=== PATIENT | male | born 1940 | race Two or more races ===

== ENCOUNTER 2017-01-28 17:03 | Inpatient (IN) | payer MEDICARE ==
[~2017-01-28] VITALS: Ht 165.1 cm; Wt 70.3 kg
[2017-01-28] MEDS ORDERED: Vancomycin 1.5gm/D5W 250ml 250 ML IVPB ONE (17:30)
[2017-01-28] MEDS ORDERED: ceFAZolin 2gm/50ml Premix 50 ML IVPB ONE (17:30)
--- NOTE | 2017-01-28 17:36 | Emergency Room Report ---
History of Present Illness General Chief Complaint: Edema Source: Patient Present Illness HPI 76 yo M hx HTN HLD pw RLE pain/swelling/redness x 2 days. pt states he got home from work, and then notices rash to RLE. +red which spread up to knee. denies calf pain, but pain to where the rashes are. denies any trauma. no fever or chills. no numbness or tingling of leg. no hx of dvt/pe in the past. no hx of DM. has been able to ambulate with slight limp Allergies: Coded Allergies: No Known Allergies (Unverified , 01/28/17) Patient History Past Medical History: none, HTN Past Surgical History: none Pertinent Family History: none Nursing Documentation-PMH Past Medical History: No History, Except For Hx Hypertension: Yes - High cholesterol Review of Systems Musculoskeletal: Reports: other - RLE pain/swelling/redness Skin: Reports: change in color, rash All Other Systems: negative except mentioned in HPI Physical Exam Vital Signs Date Time Temp Pulse Resp B/P Pulse Ox O2 Delivery O2 Flow Rate FiO2 01/28/17 17:09 99.7 90 14 166/75 96 Room Air General Appearance: normal inspection, well appearing, no apparent distress, alert, GCS 15, non-toxic Head: normocephalic, atraumatic Eyes: bilateral eye EOMI, bilateral eye PERRL, bilateral eye normal inspection ENT: normal ENT inspection, normal pharynx, normal voice, moist mucus membranes Neck: normal inspection, full range of motion, supple, no bony tend Respiratory: normal inspection, lungs clear, normal breath sounds, no respiratory distress, no retraction, no wheezing, speaking full sentences, chest symmetrical Cardiovascular #1: normal inspection, regular rate, rhythm, no edema, normal capillary refill Gastrointestinal: normal inspection, non tender, soft, non-distended, no guarding Musculoskeletal: other - RLE pitting edema from ankle to knee, TTP anterior tib /fib, no calf tenderness, blanching erythematous rash, warm to touch, tender. no crepitus. ext is warm/well perfused, distal pulses intact, full ROM Neurologic: normal inspection, alert, oriented x3, responsive, motor strength/ tone normal, sensory intact, speech normal Medical Decision Making Diagnostic Impression: Primary Impression: Cellulitis Qualified Codes: L03.115 - Cellulitis of right lower limb ER Course 76 yo M 2 days of RLE pain/swelling/redness DDX: cellulitis vs. DVT at this time limb is warm/well perfused not c/w arterial occlusion nec fasc also on differential however not high on list given no tenderness OOP or beyond area of erythema, no crepitus, but will closely monitor PLAN: IV access, obtain labs, blood culture, lactate XR RLE vascular study r/o DVT ER course: patient has remained on monitior, HD stable given vanco and ancef for cellulitis labs: +leukocytosis, no lactate elevation, +mild hypokalemia repleted Vascular study: neg for dvt XR grossly neg DISPOSITION: Patient is to be admitted for RLE cellulitis. Pt requires inpatient admission for IV abx and continued monitoring of limb. Last Vital Signs Date Time Temp Pulse Resp B/P Pulse Ox O2 Delivery O2 Flow Rate FiO2 01/28/17 17:09 99.7 90 14 166/75 96 Room Air Disposition: ADMITTED INPATIENT Condition: Serious Diony Pace M.D. Jan 28, 2017 17:36
[2017-01-28 18:05] LABS: BASOPHILS % (AUTO) 1.2 % (0.0-2.0); LYMPHOCYTES % (AUTO) 10.9 % (20.0-45.0); MEAN CORPUSCULAR HEMOGLOBIN 31.5 PG (27.0-31.0); MEAN CORPUSCULAR VOLUME 90 FL (80-99); MONOCYTES % (AUTO) 5.3 % (1.0-10.0); NEUTROPHILS % (AUTO) 82.6 % (45.0-75.0); PLATELET COUNT 342 K/UL (150-450); RED BLOOD COUNT 4.31 M/UL (4.70-6.10); RED CELL DISTRIBUTION WIDTH 11.4 % (11.6-14.8); WHITE BLOOD COUNT 17.1 K/UL (4.8-10.8)
[2017-01-28 18:16] VITALS: BP 134/51
[2017-01-28 18:28] LABS: ALANINE AMINOTRANSFERASE 14 U/L (3-41); ALBUMIN/GLOBULIN RATIO 0.9 (1.0-2.7); ANION GAP 18 (5-15); ASPARTATE AMINO TRANSFERASE 17 U/L (5-40); CARBON DIOXIDE 21 mEQ/L (20-30); CHLORIDE 91 mEQ/L (98-107); CREATININE 1.3 mg/dL (0.7-1.2); HEMOLYSIS 3; POTASSIUM 3.1 mEQ/L (3.4-4.9); SODIUM 130 mEQ/L (135-145); TOTAL PROTEIN 8.2 g/dL (6.6-8.7)
[2017-01-28 20:30] VITALS: BP 127/57
[2017-01-28] MEDS ORDERED: NKM (21:06)
[2017-01-28] MEDS ORDERED: ATENOLOL100 MG ORAL (21:49)
[2017-01-28] MEDS ORDERED: LOSARTAN POTASS50 MG ORAL (21:49)
[2017-01-28] MEDS ORDERED: AMLODIPINE BESY10 MG ORAL (21:49)
[2017-01-28] MEDS ORDERED: HYDROCHLOROTH12.5 M2 ORAL (21:49)
[2017-01-28] MEDS ORDERED: ATORVASTATIN CA20 MG ORAL (21:49)
[2017-01-28 21:53] VITALS: BP 124/59
[2017-01-28] MEDS: Heparin 5000 units/ml inj SUBQ SCH (23:21)
[2017-01-28 23:25] VITALS: BP 121/61
[2017-01-29 05:00] VITALS: BP 112/46
[2017-01-29] MEDS ORDERED: Vancomycin 1gm inj IVPB ONE (05:03)
[2017-01-29] MEDS ORDERED: Vancomycin 1gm in D5W 275ml IVPB SCH ×2 (06:00→09:00)
[2017-01-29 08:08] VITALS: BP 107/52
[2017-01-29] MEDS: Heparin 5000 units/ml inj SUBQ SCH ×2 (08:18→21:05)
[2017-01-29] MEDS ORDERED: ASPIRIN81 MG ORAL (10:09)
--- NOTE | 2017-01-29 11:04 | Infectious Diseases Prog Note ---
Assessment/Plan Assessment/Plan Full consult dictated: A) 1) right leg cellulitis, possible sepsis, leukocytosis, fevers 2) pmh noted P) 1) vancomycin 2) check labs 3) check bc, ua, labs 4) thanks Subjective Allergies: Coded Allergies: No Known Allergies (Unverified , 01/28/17) Objective Vital Signs Last 24 Hour Vital Signs Date Time Temp Pulse Resp B/P Pulse Ox O2 Delivery O2 Flow Rate FiO2 01/29/17 08:08 97.6 85 20 107/52 96 Room Air 01/29/17 05:00 98.2 77 20 112/46 97 Room Air 01/28/17 23:25 98.9 78 20 121/61 98 Room Air 01/28/17 21:54 100.9 71 18 124/59 100 Room Air 01/28/17 21:53 71 18 124/59 100 Room Air 01/28/17 20:30 100.9 72 20 127/57 100 Room Air 01/28/17 18:17 90 14 Room Air 01/28/17 18:16 99.8 75 21 134/51 96 Room Air 01/28/17 17:09 99.7 90 14 166/75 96 Room Air Height (Feet): 5 Height (Inches): 5.00 Weight (Pounds): 155 Laboratory Tests Test 01/28/17 17:39 White Blood Count 17.1 K/UL (4.8-10.8) H Red Blood Count 4.31 M/UL (4.70-6.10) L Hemoglobin 13.6 G/DL (14.2-18.0) L Hematocrit 38.8 % (42.0-52.0) L Mean Corpuscular Volume 90 FL (80-99) Mean Corpuscular Hemoglobin 31.5 PG (27.0-31.0) H Mean Corpuscular Hemoglobin Concent 35.0 G/DL (32.0-36.0) Red Cell Distribution Width 11.4 % (11.6-14.8) L Platelet Count 342 K/UL (150-450) Mean Platelet Volume 6.0 FL (6.5-10.1) L Neutrophils (%) (Auto) 82.6 % (45.0-75.0) H Lymphocytes (%) (Auto) 10.9 % (20.0-45.0) L Monocytes (%) (Auto) 5.3 % (1.0-10.0) Eosinophils (%) (Auto) 0.0 % (0.0-3.0) Basophils (%) (Auto) 1.2 % (0.0-2.0) Sodium Level 130 mEQ/L (135-145) L Potassium Level 3.1 mEQ/L (3.4-4.9) L Chloride Level 91 mEQ/L (98-107) L Carbon Dioxide Level 21 mEQ/L (20-30) Anion Gap 18 (5-15) H Blood Urea Nitrogen 29 mg/dL (7-23) H Creatinine 1.3 mg/dL (0.7-1.2) H Estimat Glomerular Filtration Rate mL/min (>60) Glucose Level 114 mg/dL (74-106) H Lactic Acid Level 1.20 mmol/L (0.66-2.22) Calcium Level 9.0 mg/dL (8.6-10.2) Total Bilirubin 0.9 mg/dL (0.0-1.2) Aspartate Amino Transf (AST/SGOT) 17 U/L (5-40) Alanine Aminotransferase (ALT/SGPT) 14 U/L (3-41) Alkaline Phosphatase 94 U/L (40-129) Total Protein 8.2 g/dL (6.6-8.7) Albumin 4.0 g/dL (3.5-5.2) Globulin 4.2 g/dL Albumin/Globulin Ratio 0.9 (1.0-2.7) L Current Medications Medications (Trade) Dose Ordered Sig/Kashif Route PRN Reason Start Time Stop Time Status Last Admin Dose Admin Heparin Sodium (Porcine) 5000 units 5,000 units Q12HR SUBQ 01/28/17 22:00 02/27/17 21:59 01/29/17 08:18 Vancomycin HCl (Vanco rx to dose) 1 ea DAILY PRN MISC Per rx protocol 01/28/17 20:30 02/27/17 20:29 Vancomycin HCl/ Dextrose (Vancomycin/D5W) 275 ml @ 183.708 mls/hr Q24H IVPB 01/29/17 06:00 02/03/17 05:59 01/29/17 05:53 EVE MARTINEZ Jan 29, 2017 11:04
[2017-01-29 11:47] VITALS: BP 125/64
--- NOTE | 2017-01-29 12:40 | Diagnostic Imaging Report ---
Indication: Pain Comparison: None Findings: Two views of the right tibia and fibula were obtained. No acute fracture, malalignment, or periosteal reaction are identified. Soft tissues are unremarkable. Impression: Negative examination of the tibia and fibula
[2017-01-29 15:54] VITALS: BP 124/63
[2017-01-29] MEDS ORDERED: Miralax 17gm pkt ORAL PRN (16:00)
--- NOTE | 2017-01-29 16:45 | Consultation ---
DATE OF CONSULTATION: 01/29/2017 INFECTIOUS DISEASES CONSULTATION CONSULTING PHYSICIAN: Brandon Goss M.D. ATTENDING PHYSICIANS: Ashly Boone M.D. I was asked by Dr. Meadows to see this patient. REASON FOR CONSULTATION: Right leg cellulitis, possible sepsis, leukocytosis, and fevers. CHIEF COMPLAINT: Right leg cellulitis. HISTORY OF PRESENT ILLNESS: This is a very pleasant 76-year-old male, who comes in to [facility] with right leg swelling and redness for the last 24 hours. The patient has cellulitis and elevated white count, fevers, and possible sepsis. Infectious Diseases consultation was requested. The patient currently is on vancomycin. MAR was noted. Orders were noted. Notes and records were reviewed. Case was discussed and communicated with Dr. Meadows. PAST MEDICAL HISTORY: Looks like he has a history of hypertension and hyperlipidemia. MEDICATIONS: Outside medications were noted and reconciled. He is on amlodipine, aspirin, atenolol, atorvastatin, hydrochlorothiazide, and losartan. Now he is on vancomycin and IV fluids. ALLERGIES: No known drug allergies. SOCIAL HISTORY: Negative for smoking, alcohol, and drug abuse. FAMILY HISTORY: Noncontributory. Negative for exposure to tuberculosis or cancer. REVIEW OF SYSTEMS: General: He has fevers. No chills. He has no night sweats. No weight loss. Head And Neck: No head pain, neck pain, thrush, or dysphagia. Cardiac: No chest pain. GI: No nausea, vomiting, or diarrhea. Genitourinary: No dysuria or frequency. Pulmonary: No congestion. Skin: No rash. Extremities: Has right leg pain, swelling, and redness. Neurologic: No seizures. He has no hemoptysis or secretions. PHYSICAL EXAMINATION: GENERAL: Alert and responsive, in no acute distress. He is oriented x3. VITAL SIGNS: The patient has been having fevers as high as 100.9 degrees, pulse rate 85, respiratory rate 21, blood pressure 107/52, and saturation 96%. HEAD AND NECK: Oral exam, no thrush. Eye exam, no icterus. Normocephalic. No facial droop. Neck is supple. No JVD. HEART: Regular. No gallop or murmur. No friction rub. LUNGS: Clear bilaterally. No rhonchi or rales. ABDOMEN: Soft. Positive bowel sounds. Nontender. SKIN: No rash or dermatitis. MUSCULOSKELETAL: No evidence of septic arthritis. EXTREMITIES: Leg exam, he has significant right leg swelling, redness, and warmth consistent with cellulitis. PERIPHERAL VASCULAR: No cyanosis or gangrene. RECTAL: Deferred. GENITOURINARY: No Fan. LINES: Line sites without phlebitis. NEUROLOGIC: Intact and nonfocal. Alert and oriented x3. LABORATORY AND DIAGNOSTIC DATA: White count is 17.1 and hemoglobin 13.6. Creatinine is 1.3. LFTs were noted. IMAGING STUDIES: an ultrasound of the leg. ASSESSMENT AND PLAN: 1. The patient has severe right leg cellulitis with leg, possible sepsis with leukocytosis and fevers and such criteria. Continue vancomycin at this time to cover Staphylococcus aureus including MRSA and Streptococcus pyogenes. Continue vancomycin. Check followup labs. Watch creatinine. Watch white cell count. 2. Hypertension. 3. Hyperlipidemia. 4. No history of diabetes. 5. No known allergies. 6. Social history is negative. 7. MAR was noted. 8. Case was discussed with RN. 9. Notes and records reviewed. 10. Continue treatment per Dr. Meadows at this time. Brandon Goss M.D. DR: RAINER JOB#: [id number] CC:
[2017-01-29] MEDS ORDERED: Tubing IV Secondary IV ONE (16:57)
[2017-01-29] MEDS ORDERED: D5W 275ml ONE (16:57)
[2017-01-29] MEDS ORDERED: NS 275ml ONE (16:57)
[2017-01-29] MEDS: Aspirin Baby 81mg ORAL SCH (17:07)
[2017-01-29 18:06] LABS: BASOPHILS % (AUTO) 0.6 % (0.0-2.0); EOSINOPHILS % (AUTO) 0.1 % (0.0-3.0); LYMPHOCYTES % (AUTO) 9.1 % (20.0-45.0); MEAN CORPUSCULAR HEMOGLOBIN 33.4 PG (27.0-31.0); MEAN CORPUSCULAR HGB CONC 37.1 G/DL (32.0-36.0); MEAN CORPUSCULAR VOLUME 90 FL (80-99); MEAN PLATELET VOLUME 5.9 FL (6.5-10.1); MONOCYTES % (AUTO) 6.3 % (1.0-10.0); NEUTROPHILS % (AUTO) 83.9 % (45.0-75.0); PLATELET COUNT 274 K/UL (150-450); RED BLOOD COUNT 3.43 M/UL (4.70-6.10); RED CELL DISTRIBUTION WIDTH 11.4 % (11.6-14.8); WHITE BLOOD COUNT 14.5 K/UL (4.8-10.8)
[2017-01-29 18:25] LABS: PHOSPHORUS 1.8 mg/dL (2.5-4.8)
[2017-01-29 18:27] LABS: ANION GAP 15 (5-15); CALCIUM 8.1 mg/dL (8.6-10.2); CARBON DIOXIDE 20 mEQ/L (20-30); CHLORIDE 98 mEQ/L (98-107); HEMOLYSIS 32; POTASSIUM 3.8 mEQ/L (3.4-4.9); SODIUM 133 mEQ/L (135-145)
[2017-01-29 20:13] LABS: APPEARANCE,URINE CLEAR; KETONES,URINE 1+ (NEGATIVE); LEUKOCYTE ESTERASE ,URINE NEGATIVE (NEGATIVE); NITRITE,URINE NEGATIVE (NEGATIVE); PH,URINE 6 (4.5-8.0); PROTEIN,URINE 2+ (NEGATIVE); UROBILINOGEN,URINE NORMAL MG/DL (0.0-1.0)
[2017-01-29 20:23] LABS: BACTERIA,URINE FEW /HPF; WBC,URINE 0-2 /HPF (0 - 0)
[2017-01-29 21:00] VITALS: BP 110/52
[2017-01-29] MEDS: Atorvastatin 20mg tab ORAL SCH (21:02)
[2017-01-29] MEDS: Vancomycin 1gm in D5W 275ml IVPB SCH (21:03)
[2017-01-30] VITALS: BP 132/61
[2017-01-30 04:00] VITALS: BP 138/64
[2017-01-30 07:29] LABS: BASOPHILS % (AUTO) 0.6 % (0.0-2.0); EOSINOPHILS % (AUTO) 0.5 % (0.0-3.0); LYMPHOCYTES % (AUTO) 11.3 % (20.0-45.0); MEAN CORPUSCULAR HEMOGLOBIN 31.3 PG (27.0-31.0); MEAN CORPUSCULAR HGB CONC 33.9 G/DL (32.0-36.0); MEAN CORPUSCULAR VOLUME 92 FL (80-99); MEAN PLATELET VOLUME 5.7 FL (6.5-10.1); MONOCYTES % (AUTO) 6.5 % (1.0-10.0); NEUTROPHILS % (AUTO) 81.2 % (45.0-75.0); PLATELET COUNT 322 K/UL (150-450); RED BLOOD COUNT 3.68 M/UL (4.70-6.10); RED CELL DISTRIBUTION WIDTH 11.7 % (11.6-14.8); WHITE BLOOD COUNT 14.4 K/UL (4.8-10.8)
[2017-01-30 07:41] LABS: ANION GAP 11 (5-15); CALCIUM 8.5 mg/dL (8.6-10.2); CARBON DIOXIDE 24 mEQ/L (20-30); CHLORIDE 101 mEQ/L (98-107); HEMOLYSIS 6; POTASSIUM 4.1 mEQ/L (3.4-4.9); SODIUM 136 mEQ/L (135-145)
[2017-01-30] MEDS: Aspirin Baby 81mg ORAL SCH (08:35)
[2017-01-30] MEDS: Heparin 5000 units/ml inj SUBQ SCH ×2 (08:36→21:05)
[2017-01-30 09:10] VITALS: BP 139/67
[2017-01-30 12:00] VITALS: BP 133/72
[2017-01-30 16:00] VITALS: BP 112/62
--- NOTE | 2017-01-30 17:48 | History and Physical ---
History of Present Illness General Date patient seen: Jan 29, 2017 Time patient seen: 12:00 Reason for Hospitalization: RLE cellulitis Present Illness HPI 76yo male with pmh of HTN, HLD presents with RLE pain/swelling/redness x 2 days.Ppt states he got home from work, and then notices rash to RLE. +red which spread up to knee. denies calf pain, but pain to where the rashes are. Denies any trauma. no fever or chills. no numbness or tingling of leg. No h/o DVT/PE in past. Denies h/o DM. Pt has been able to ambulate with slight limp. Denies recent travel or sick contacts. Denies f/c, n/v, d/c, chest pain, SOB, abd pain , dysuria. In ED, pt w/ WBC to 17K. Pt given IVFs, vanco and ancef. X-ray neg. U/S LE duplex neg for DVT. Allergies: Coded Allergies: No Known Allergies (Unverified , 01/28/17) Medication History Scheduled Amlodipine Besylate* (Amlodipine Besylate*), 10 MG ORAL DAILY, (Reported) Aspirin* (Aspirin*), 81 MG ORAL DAILY, (Reported) Atenolol* (Tenormin*), 100 MG ORAL DAILY, (Reported) Atorvastatin Calcium* (Atorvastatin Calcium*), 200 MG ORAL BEDTIME, (Reported) Hydrochlorothiazide* (Hydrochlorothiazide*), 25 MG ORAL DAILY, (Reported) Losartan Potassium* (Losartan Potassium*), 100 MG ORAL DAILY, (Reported) Discontinued Medications No Known Medications* (NKM - No Known Medications*), 0 ., (Reported) Discontinued Reason: Therapy completed Patient History Healthcare decision maker Resuscitation status Full Code Advanced Directive on File Past Medical/Surgical History Past Medical/Surgical History: (1) HTN (hypertension) (2) HLD (hyperlipidemia) Family History Family History: Patient reports no known family medical history. Social History Social History: (1) lives at home with Review of Systems Constitutional: Reports: no symptoms Eye: Reports: no symptoms ENT: Reports: no symptoms Respiratory: Reports: no symptoms Cardiovascular: Reports: no symptoms Gastrointestinal: Reports: no symptoms Genitourinary: Reports: no symptoms Musculoskeletal: Reports: no symptoms Skin: Reports: no symptoms Psychiatric: Reports: no symptoms Neurological: Reports: no symptoms Endocrine: Reports: no symptoms Hematologic/Lymphatic: Reports: no symptoms Physical Exam Physical Exam Narrative General: alert, cooperative, no distress, appears stated age Head: normocephalic, without obvious abnormality, atraumatic Eyes: conjunctivae/corneas clear. PERRL, EOM's intact Throat: lips, mucosa, and tongue normal. MMM Neck: supple, symmetrical, trachea midline, and no JVD Lungs: clear to auscultation bilaterally Heart: regular rate and rhythm, S1, S2 normal, no murmur, click, rub or gallop Abdomen: soft, non-tender, non-distended, bowel sounds normal; no masses or organomegaly Extremities: extremities normal, atraumatic, no cyanosis, +RLE pitting edema from ankle to knee, TTP anterior tib/fib, no calf tenderness, blanching erythematous rash, warm to touch, tender. no crepitus. ext is warm/well perfused , distal pulses intact, full ROM Pulses: 2+ and symmetric Skin: skin color, texture, turgor normal; no rashes or lesions Neurologic: grossly normal, no focal deficits Last 24 Hour Vital Signs Date Time Temp Pulse Resp B/P Pulse Ox O2 Delivery O2 Flow Rate FiO2 01/30/17 16:00 98.2 76 18 112/62 97 Room Air 01/30/17 12:00 97.7 82 18 133/72 98 Room Air 01/30/17 09:10 97.5 87 18 139/67 Room Air 01/30/17 05:09 97.7 01/30/17 04:00 100.9 84 20 138/64 97 Room Air 01/30/17 00:00 99.1 80 20 132/61 96 Room Air 01/29/17 21:00 97.7 76 20 110/52 95 Room Air Intake and Output 01/29/17 01/30/17 18:59 06:59 Intake Total 1200 ml 525.000 ml Output Total 300 ml 1 ml Balance 900 ml 524.000 ml Intake Oral 1200 ml 250 ml IV Total 275.000 ml Output Urine Total 300 ml 1 ml # Voids 3 Laboratory Tests Test 01/29/17 19:45 01/30/17 06:15 Urine Color Yellow Urine Appearance Clear Urine pH 6 (4.5-8.0) Urine Specific [place] 1.010 (1.005-1.035) Urine Protein 2+ (NEGATIVE) H Urine Glucose (UA) Negative (NEGATIVE) Urine Ketones 1+ (NEGATIVE) H Urine Occult Blood 1+ (NEGATIVE) H Urine Nitrite Negative (NEGATIVE) Urine Bilirubin Negative (NEGATIVE) Urine Urobilinogen Normal MG/DL (0.0-1.0) Urine Leukocyte Esterase Negative (NEGATIVE) Urine RBC 2-4 /HPF (0 - 0) H Urine WBC 0-2 /HPF (0 - 0) Urine Squamous Epithelial Cells None /LPF (NONE/OCC) Urine Bacteria Few /HPF (NONE) White Blood Count 14.4 K/UL (4.8-10.8) H Red Blood Count 3.68 M/UL (4.70-6.10) L Hemoglobin 11.5 G/DL (14.2-18.0) L Hematocrit 34.0 % (42.0-52.0) L Mean Corpuscular Volume 92 FL (80-99) Mean Corpuscular Hemoglobin 31.3 PG (27.0-31.0) H Mean Corpuscular Hemoglobin Concent 33.9 G/DL (32.0-36.0) Red Cell Distribution Width 11.7 % (11.6-14.8) Platelet Count 322 K/UL (150-450) Mean Platelet Volume 5.7 FL (6.5-10.1) L Neutrophils (%) (Auto) 81.2 % (45.0-75.0) H Lymphocytes (%) (Auto) 11.3 % (20.0-45.0) L Monocytes (%) (Auto) 6.5 % (1.0-10.0) Eosinophils (%) (Auto) 0.5 % (0.0-3.0) Basophils (%) (Auto) 0.6 % (0.0-2.0) Sodium Level 136 mEQ/L (135-145) Potassium Level 4.1 mEQ/L (3.4-4.9) Chloride Level 101 mEQ/L (98-107) Carbon Dioxide Level 24 mEQ/L (20-30) Anion Gap 11 (5-15) Blood Urea Nitrogen 13 mg/dL (7-23) Creatinine 1.0 mg/dL (0.7-1.2) Estimat Glomerular Filtration Rate mL/min (>60) Glucose Level 110 mg/dL (74-106) H Calcium Level 8.5 mg/dL (8.6-10.2) L Height (Feet): 5 Height (Inches): 5.00 Weight (Pounds): 155 Medications Current Medications Medications (Trade) Dose Ordered Sig/Kashif Route PRN Reason Start Time Stop Time Status Last Admin Dose Admin Acetaminophen (Tylenol) 650 mg Q6H PRN ORAL Mild Pain/Temp > 100.5 01/29/17 15:15 02/28/17 15:14 01/30/17 17:04 Amlodipine Besylate (Norvasc) 10 mg DAILYPRN PRN ORAL SBP>155 01/29/17 16:30 02/28/17 16:29 Aspirin (ASA) 81 mg DAILY ORAL 01/29/17 16:30 02/28/17 16:29 01/30/17 08:35 Atorvastatin Calcium (Lipitor) 20 mg BEDTIME ORAL 01/29/17 21:00 02/28/17 20:59 01/29/17 21:02 Heparin Sodium (Porcine) 5000 units 5,000 units Q12HR SUBQ 01/28/17 22:00 02/27/17 21:59 01/30/17 08:36 Polyethylene Glycol (Miralax) 17 gm DAILY PRN ORAL Constipation 01/29/17 16:00 02/28/17 15:59 Vancomycin HCl (Vanco rx to dose) 1 ea DAILY PRN MISC Per rx protocol 01/28/17 20:30 02/27/17 20:29 Vancomycin HCl/ Dextrose (Vancomycin/D5W) 275 ml @ 183.708 mls/hr DAILY@2100 IVPB 01/29/17 21:00 02/03/17 20:59 01/29/17 21:03 Assessment/Plan Problem List: (1) Sepsis ICD Codes: A41.9 - Sepsis, unspecified organism SNOMED: 56327120 (2) Cellulitis of right lower extremity ICD Codes: L03.115 - Cellulitis of right lower limb SNOMED: 972938744 (3) HTN (hypertension) ICD Codes: I10 - Essential (primary) hypertension SNOMED: 04664505 (4) HLD (hyperlipidemia) ICD Codes: E78.5 - Hyperlipidemia, unspecified SNOMED: 41439138 (5) Hyponatremia ICD Codes: E87.1 - Hypo-osmolality and hyponatremia SNOMED: 85783767 (6) GABBI (acute kidney injury) ICD Codes: N17.9 - Acute kidney failure, unspecified SNOMED: 75932016 (7) Hypokalemia ICD Codes: E87.6 - Hypokalemia SNOMED: 79573707 (8) Hypophosphatemia ICD Codes: E83.39 - Other disorders of phosphorus metabolism SNOMED: 2573228 Status: stable Assessment/Plan Admit inpt ID consulted Empiric vanco F/u cultures X-ray tib/fib neg RLE U/S duplex neg for DVT Trend CBC, BMP Cont home ASA, staitn Hold home losartan, HCTZ given GABBI, hyponatremia Hold home BP meds for now given concern for sepsis and BPs ok Pain control, supportive care, bowel regimen DVT Prophylaxis: SCD, HSQ Code Status: Full Hospital Classification Declaration: Based on this initial evaluation, and depending on the patient's clinical course, I anticipate that this patient will require hospitalization for 2-3 days for sepsis 2/2 RLE cellulitis and close respiratory/hemodynamic monitoring. Disposition: Once the patient is stable to leave the hospital, I anticipate the patient will likely be discharged to the following environment: home with HH vs SNF I spent 70 minutes on this patient's case, and 36 minutes were dedicated to counseling and/or care coordination. Discussed with patient/family, nursing staff, SW/CM, ID regarding clinical status, treatment course, and disposition planning. Time of note may not reflect time of encounter. Abdiel Self M.D. Jan 30, 2017 17:48
--- NOTE | 2017-01-30 17:49 | Infectious Diseases Prog Note ---
Assessment/Plan Assessment/Plan ASSESSMENT AND PLAN: 1. The patient has severe right leg cellulitis with redness and swelling of right leg, possible sepsis with leukocytosis and fevers and sirs criteria. - cellulitis still significant - continue vancomycin, add cefepime for gram negative coverage - leg elevation - check labs - leukocytosis better 2. Hypertension. 3. Hyperlipidemia. 4. No history of diabetes. 5. No known allergies. 6. Social history is negative. 7. MAR was noted. 8. Case was discussed with RN. 9. Notes and records reviewed. 10. Continue treatment per Dr. Meadows Subjective Constitutional: Reports: fatigue, fever, Denies: chills HEENT: Denies: congestion Respiratory: Denies: shortness of breath Breasts: Denies: discharge Cardiovascular: Denies: chest pain Gastrointestinal/Abdominal: Denies: diarrhea, nausea, vomiting Genitourinary: Denies: dysuria Neurologic: Denies: headache Psychiatric: Denies: depression Skin: Denies: rash Hematologic: Denies: bleeding Musculoskeletal: Reports: other - + right leg pain, Denies: pain Allergies: Coded Allergies: No Known Allergies (Unverified , 01/28/17) Objective Vital Signs Last 24 Hour Vital Signs Date Time Temp Pulse Resp B/P Pulse Ox O2 Delivery O2 Flow Rate FiO2 01/30/17 16:00 98.2 76 18 112/62 97 Room Air 01/30/17 12:00 97.7 82 18 133/72 98 Room Air 01/30/17 09:10 97.5 87 18 139/67 Room Air 01/30/17 05:09 97.7 01/30/17 04:00 100.9 84 20 138/64 97 Room Air 01/30/17 00:00 99.1 80 20 132/61 96 Room Air 01/29/17 21:00 97.7 76 20 110/52 95 Room Air Height (Feet): 5 Height (Inches): 5.00 Weight (Pounds): 155 General Appearance: no acute distress HEENT: normocephalic, atraumatic, anicteric, mucous membranes moist, PERRL, EOMI, pharynx normal, supple, no JVD Respiratory/Chest: lungs clear, normal breath sounds, no respiratory distress Cardiovascular: normal rate, regular rhythm, no gallop/murmur, no JVD Abdomen: normal bowel sounds, soft, non tender, no organomegaly, non distended Genitourinary: other - no romano Extremities: no cyanosis, other - right leg still with significant redness, pain and swelling Skin: no rash Neurologic/Psychiatric: 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 normal, abnormal gait, oriented x 3 , responsive Lymphatic: no neck adenopathy Musculoskeletal: no effusion, other - no septic arthritis of right leg Objective x-ray right leg - negative Microbiology Date/Time Source Procedure Growth Status 01/28/17 17:29 Blood Blood Culture - Preliminary NO GROWTH AFTER 24 HOURS Resulted 01/28/17 17:19 Blood Blood Culture - Preliminary NO GROWTH AFTER 24 HOURS Resulted Laboratory Tests Test 01/29/17 19:45 01/30/17 06:15 Urine Color Yellow Urine Appearance Clear Urine pH 6 (4.5-8.0) Urine Specific [place] 1.010 (1.005-1.035) Urine Protein 2+ (NEGATIVE) H Urine Glucose (UA) Negative (NEGATIVE) Urine Ketones 1+ (NEGATIVE) H Urine Occult Blood 1+ (NEGATIVE) H Urine Nitrite Negative (NEGATIVE) Urine Bilirubin Negative (NEGATIVE) Urine Urobilinogen Normal MG/DL (0.0-1.0) Urine Leukocyte Esterase Negative (NEGATIVE) Urine RBC 2-4 /HPF (0 - 0) H Urine WBC 0-2 /HPF (0 - 0) Urine Squamous Epithelial Cells None /LPF (NONE/OCC) Urine Bacteria Few /HPF (NONE) White Blood Count 14.4 K/UL (4.8-10.8) H Red Blood Count 3.68 M/UL (4.70-6.10) L Hemoglobin 11.5 G/DL (14.2-18.0) L Hematocrit 34.0 % (42.0-52.0) L Mean Corpuscular Volume 92 FL (80-99) Mean Corpuscular Hemoglobin 31.3 PG (27.0-31.0) H Mean Corpuscular Hemoglobin Concent 33.9 G/DL (32.0-36.0) Red Cell Distribution Width 11.7 % (11.6-14.8) Platelet Count 322 K/UL (150-450) Mean Platelet Volume 5.7 FL (6.5-10.1) L Neutrophils (%) (Auto) 81.2 % (45.0-75.0) H Lymphocytes (%) (Auto) 11.3 % (20.0-45.0) L Monocytes (%) (Auto) 6.5 % (1.0-10.0) Eosinophils (%) (Auto) 0.5 % (0.0-3.0) Basophils (%) (Auto) 0.6 % (0.0-2.0) Sodium Level 136 mEQ/L (135-145) Potassium Level 4.1 mEQ/L (3.4-4.9) Chloride Level 101 mEQ/L (98-107) Carbon Dioxide Level 24 mEQ/L (20-30) Anion Gap 11 (5-15) Blood Urea Nitrogen 13 mg/dL (7-23) Creatinine 1.0 mg/dL (0.7-1.2) Estimat Glomerular Filtration Rate mL/min (>60) Glucose Level 110 mg/dL (74-106) H Calcium Level 8.5 mg/dL (8.6-10.2) L Current Medications Medications (Trade) Dose Ordered Sig/Kashif Route PRN Reason Start Time Stop Time Status Last Admin Dose Admin Acetaminophen (Tylenol) 650 mg Q6H PRN ORAL Mild Pain/Temp > 100.5 01/29/17 15:15 02/28/17 15:14 01/30/17 17:04 Amlodipine Besylate (Norvasc) 10 mg DAILYPRN PRN ORAL SBP>155 01/29/17 16:30 02/28/17 16:29 Aspirin (ASA) 81 mg DAILY ORAL 01/29/17 16:30 02/28/17 16:29 01/30/17 08:35 Atorvastatin Calcium (Lipitor) 20 mg BEDTIME ORAL 01/29/17 21:00 02/28/17 20:59 01/29/17 21:02 Heparin Sodium (Porcine) 5000 units 5,000 units Q12HR SUBQ 01/28/17 22:00 02/27/17 21:59 01/30/17 08:36 Polyethylene Glycol (Miralax) 17 gm DAILY PRN ORAL Constipation 01/29/17 16:00 02/28/17 15:59 Vancomycin HCl (Vanco rx to dose) 1 ea DAILY PRN MISC Per rx protocol 01/28/17 20:30 02/27/17 20:29 Vancomycin HCl/ Dextrose (Vancomycin/D5W) 275 ml @ 183.708 mls/hr DAILY@2100 IVPB 01/29/17 21:00 02/03/17 20:59 01/29/17 21:03 EVE MARTINEZ Jan 30, 2017 17:49
--- NOTE | 2017-01-30 17:51 | General Progress Note ---
Assessment/Plan Problem List: (1) Sepsis ICD Codes: A41.9 - Sepsis, unspecified organism SNOMED: 88771691 (2) Cellulitis of right lower extremity ICD Codes: L03.115 - Cellulitis of right lower limb SNOMED: 367944047 (3) HTN (hypertension) ICD Codes: I10 - Essential (primary) hypertension SNOMED: 59727044 (4) HLD (hyperlipidemia) ICD Codes: E78.5 - Hyperlipidemia, unspecified SNOMED: 13683632 (5) Hyponatremia ICD Codes: E87.1 - Hypo-osmolality and hyponatremia SNOMED: 85666661 (6) GABBI (acute kidney injury) ICD Codes: N17.9 - Acute kidney failure, unspecified SNOMED: 34939611 (7) Hypokalemia ICD Codes: E87.6 - Hypokalemia SNOMED: 15322923 (8) Hypophosphatemia ICD Codes: E83.39 - Other disorders of phosphorus metabolism SNOMED: 3195420 Status: stable Status Narrative ID consulted Empiric vanco (01/28-) Add cefepime (01/30-) F/u cultures X-ray tib/fib neg RLE U/S duplex neg for DVT Trend CBC, BMP Cont home ASA, staitn Hold home losartan, HCTZ given GABBI, hyponatremia Hold home BP meds for now given concern for sepsis and BPs ok Pain control, supportive care, bowel regimen PT eval DVT Prophylaxis: SCD, HSQ Code Status: Full Hospital Classification Declaration: Based on this initial evaluation, and depending on the patient's clinical course, I anticipate that this patient will require hospitalization for 2-3 days for sepsis 2/2 RLE cellulitis and close respiratory/hemodynamic monitoring. Disposition: Once the patient is stable to leave the hospital, I anticipate the patient will likely be discharged to the following environment: home with HH vs SNF Discussed with patient/family, nursing staff, SW/CM, ID regarding clinical status, treatment course, and disposition planning. Time of note may not reflect time of encounter. Subjective Date patient seen: Jan 30, 2017 Time patient seen: 13:50 ROS Limited/Unobtainable: No Constitutional: Reports: no symptoms HEENT: Reports: no symptoms Cardiovascular: Reports: no symptoms Respiratory: Reports: no symptoms Gastrointestinal/Abdominal: Reports: no symptoms Genitourinary: Reports: no symptoms Neurologic/Psychiatric: Reports: no symptoms Endocrine: Reports: no symptoms Hematologic/Lymphatic: Reports: no symptoms Allergies: Coded Allergies: No Known Allergies (Unverified , 01/28/17) All Systems: reviewed and negative except above Subjective Tmax 100.9 Pt doing well but cont w/ RLE swelling/redness/pain/warmth. Able to ambulate a few steps but does have pain Intermittent fevers/chills Denies chest pain, SOB, n/v, d/c, abd pain Objective Last 24 Hour Vital Signs Date Time Temp Pulse Resp B/P Pulse Ox O2 Delivery O2 Flow Rate FiO2 01/30/17 16:00 98.2 76 18 112/62 97 Room Air 01/30/17 12:00 97.7 82 18 133/72 98 Room Air 01/30/17 09:10 97.5 87 18 139/67 Room Air 01/30/17 05:09 97.7 01/30/17 04:00 100.9 84 20 138/64 97 Room Air 01/30/17 00:00 99.1 80 20 132/61 96 Room Air 01/29/17 21:00 97.7 76 20 110/52 95 Room Air Intake and Output 01/29/17 01/30/17 19:00 07:00 Intake Total 1200 ml 525.000 ml Output Total 300 ml 1 ml Balance 900 ml 524.000 ml Intake Oral 1200 ml 250 ml IV Total 275.000 ml Output Urine Total 300 ml 1 ml # Voids 3 Laboratory Tests 01/29/17 19:45: Urine Color Yellow, Urine Appearance Clear, Urine pH 6, Urine Specific [place] 1.010, Urine Protein 2+H, Urine Glucose (UA) Negative, Urine Ketones 1+H, Urine Occult Blood 1+H, Urine Nitrite Negative, Urine Bilirubin Negative, Urine Urobilinogen Normal, Urine Leukocyte Esterase Negative, Urine RBC 2-4H, Urine WBC 0-2, Urine Squamous Epithelial Cells None, Urine Bacteria Few 01/30/17 06:15: White Blood Count 14.4H, Red Blood Count 3.68L, Hemoglobin 11.5L, Hematocrit 34.0L, Mean Corpuscular Volume 92, Mean Corpuscular Hemoglobin 31.3H, Mean Corpuscular Hemoglobin Concent 33.9, Red Cell Distribution Width 11.7, Platelet Count 322, Mean Platelet Volume 5.7L, Neutrophils (%) (Auto) 81.2H, Lymphocytes (%) (Auto) 11.3L, Monocytes (%) (Auto) 6.5, Eosinophils (%) (Auto) 0.5, Basophils (%) (Auto) 0.6, Sodium Level 136, Potassium Level 4.1, Chloride Level 101, Carbon Dioxide Level 24, Anion Gap 11, Blood Urea Nitrogen 13, Creatinine 1.0, Estimat Glomerular Filtration Rate , Glucose Level 110H, Calcium Level 8.5L Height (Feet): 5 Height (Inches): 5.00 Weight (Pounds): 155 Objective General: alert, cooperative, no distress, appears stated age Head: normocephalic, without obvious abnormality, atraumatic Eyes: conjunctivae/corneas clear. PERRL, EOM's intact Throat: lips, mucosa, and tongue normal. MMM Neck: supple, symmetrical, trachea midline, and no JVD Lungs: clear to auscultation bilaterally Heart: regular rate and rhythm, S1, S2 normal, no murmur, click, rub or gallop Abdomen: soft, non-tender, non-distended, bowel sounds normal; no masses or organomegaly Extremities: extremities normal, atraumatic, no cyanosis, +RLE pitting edema from ankle to knee, TTP anterior tib/fib, no calf tenderness, blanching erythematous rash, warm to touch, tender. no crepitus. ext is warm/well perfused , distal pulses intact, full ROM Pulses: 2+ and symmetric Skin: skin color, texture, turgor normal; no rashes or lesions Neurologic: grossly normal, no focal deficits Abdiel Self M.D. Jan 30, 2017 17:51
[2017-01-30 20:00] VITALS: BP 130/59
[2017-01-30] MEDS ORDERED: Cefepime HCl 1 GM in D5W 55 ML IVPB SCH (21:00)
[2017-01-30] MEDS: Atorvastatin 20mg tab ORAL SCH (21:03)
[2017-01-30] MEDS: Cefepime 2gm/D5W 110ml IV SCH ×2 (21:03)
[2017-01-30] MEDS: Vancomycin 1gm in D5W 275ml IVPB SCH (23:09)
[2017-01-31] VITALS: BP 123/66
[2017-01-31 04:00] VITALS: BP 134/70
[2017-01-31 07:17] LABS: EOSINOPHILS % (AUTO) 2.4 % (0.0-3.0); LYMPHOCYTES % (AUTO) 12.5 % (20.0-45.0); MEAN CORPUSCULAR HEMOGLOBIN 31.4 PG (27.0-31.0); MEAN CORPUSCULAR VOLUME 92 FL (80-99); MEAN PLATELET VOLUME 5.2 FL (6.5-10.1); MONOCYTES % (AUTO) 5.6 % (1.0-10.0); NEUTROPHILS % (AUTO) 78.4 % (45.0-75.0); PLATELET COUNT 362 K/UL (150-450); RED BLOOD COUNT 3.63 M/UL (4.70-6.10); RED CELL DISTRIBUTION WIDTH 11.9 % (11.6-14.8); WHITE BLOOD COUNT 11.3 K/UL (4.8-10.8)
[2017-01-31 07:32] LABS: ANION GAP 12 (5-15); CALCIUM 8.3 mg/dL (8.6-10.2); CARBON DIOXIDE 23 mEQ/L (20-30); CHLORIDE 100 mEQ/L (98-107); CREATININE 0.8 mg/dL (0.7-1.2); HEMOLYSIS 2; MAGNESIUM 2.1 mg/dL (1.7-2.5); PHOSPHORUS 2.8 mg/dL (2.5-4.8); POTASSIUM 3.6 mEQ/L (3.4-4.9); SODIUM 135 mEQ/L (135-145)
[2017-01-31 08:00] VITALS: BP 133/72
[2017-01-31] MEDS: Aspirin Baby 81mg ORAL SCH (09:06)
[2017-01-31] MEDS: Heparin 5000 units/ml inj SUBQ SCH ×2 (09:08→21:17)
[2017-01-31 12:00] VITALS: BP 155/77
[2017-01-31 16:00] VITALS: BP 153/64
[2017-01-31] MEDS ORDERED: Tubing IV Secondary IV ONE (16:59)
[2017-01-31] MEDS ORDERED: NS 275ml ONE (16:59)
[2017-01-31 20:00] VITALS: BP 137/70
[2017-01-31] MEDS: Cefepime 2gm/D5W 110ml IV SCH ×2 (20:46)
[2017-01-31] MEDS: Atorvastatin 20mg tab ORAL SCH (21:13)
[2017-01-31] MEDS: Vancomycin 1gm in D5W 275ml IVPB SCH (21:49)
--- NOTE | 2017-01-31 22:54 | General Progress Note ---
Assessment/Plan Problem List: (1) Sepsis ICD Codes: A41.9 - Sepsis, unspecified organism SNOMED: 91791315 (2) Cellulitis of right lower extremity ICD Codes: L03.115 - Cellulitis of right lower limb SNOMED: 393340925 (3) HTN (hypertension) ICD Codes: I10 - Essential (primary) hypertension SNOMED: 01168906 (4) HLD (hyperlipidemia) ICD Codes: E78.5 - Hyperlipidemia, unspecified SNOMED: 01396029 (5) Hyponatremia ICD Codes: E87.1 - Hypo-osmolality and hyponatremia SNOMED: 87661477 (6) GABBI (acute kidney injury) ICD Codes: N17.9 - Acute kidney failure, unspecified SNOMED: 59926999 (7) Hypokalemia ICD Codes: E87.6 - Hypokalemia SNOMED: 02405807 (8) Hypophosphatemia ICD Codes: E83.39 - Other disorders of phosphorus metabolism SNOMED: 4751103 Status: stable Assessment/Plan ID consulted Empiric vanco (01/28-) and cefepime (01/30-) per ID F/u blood cultures--ngtd X-ray tib/fib neg RLE U/S duplex neg for DVT Trend CBC, BMP Cont home ASA, staitn Hold home losartan, HCTZ given GABBI, hyponatremia Restart amlodpine 5mg daily Pain control, supportive care, bowel regimen PT eval DVT Prophylaxis: SCD, HSQ Code Status: Full Hospital Classification Declaration: Based on this initial evaluation, and depending on the patient's clinical course, I anticipate that this patient will require hospitalization for 1-2 days for sepsis 2/2 RLE cellulitis and close respiratory/hemodynamic monitoring. Disposition: Once the patient is stable to leave the hospital, I anticipate the patient will likely be discharged to the following environment: home with HH vs SNF Discussed with patient/family, nursing staff, SW/CM, ID regarding clinical status, treatment course, and disposition planning. Time of note may not reflect time of encounter. Subjective Date patient seen: Jan 31, 2017 Time patient seen: 14:00 ROS Limited/Unobtainable: No Constitutional: Reports: no symptoms HEENT: Reports: no symptoms Cardiovascular: Reports: no symptoms Respiratory: Reports: no symptoms Gastrointestinal/Abdominal: Reports: no symptoms Genitourinary: Reports: no symptoms Neurologic/Psychiatric: Reports: no symptoms Endocrine: Reports: no symptoms Hematologic/Lymphatic: Reports: no symptoms Allergies: Coded Allergies: No Known Allergies (Unverified , 01/28/17) Subjective Afebrile o/n WBC trending down Pt doing well but RLE swelling/redness/pain/warmth is slowly improving. Able to ambulate a few steps but does have pain. Able to move leg more than yesterday Denies f/c, chest pain, SOB, n/v, d/c, abd pain Objective Last 24 Hour Vital Signs Date Time Temp Pulse Resp B/P Pulse Ox O2 Delivery O2 Flow Rate FiO2 01/31/17 20:00 99.7 83 18 137/70 97 Room Air 01/31/17 16:00 98.2 100 20 153/64 95 Room Air 01/31/17 15:02 96 155/77 01/31/17 12:00 98.8 96 20 155/77 96 Room Air 01/31/17 08:00 98.2 88 17 133/72 98 Room Air 01/31/17 04:00 97.8 87 18 134/70 97 Room Air 01/31/17 00:00 97.7 79 18 123/66 97 Room Air Intake and Output 01/30/17 01/31/17 19:00 07:00 Intake Total 860 ml 827.416 ml Balance 860 ml 827.416 ml Intake Oral 860 ml 240 ml IV Total 587.416 ml # Voids 6 4 # Bowel Movements 1 2 Laboratory Tests 01/31/17 05:00: White Blood Count 11.3H, Red Blood Count 3.63L, Hemoglobin 11.4L, Hematocrit 33.5L, Mean Corpuscular Volume 92, Mean Corpuscular Hemoglobin 31.4H, Mean Corpuscular Hemoglobin Concent 34.0, Red Cell Distribution Width 11.9, Platelet Count 362, Mean Platelet Volume 5.2L, Neutrophils (%) (Auto) 78.4H, Lymphocytes (%) (Auto) 12.5L, Monocytes (%) (Auto) 5.6, Eosinophils (%) (Auto) 2.4, Basophils (%) (Auto) 1.0, Sodium Level 135, Potassium Level 3.6, Chloride Level 100, Carbon Dioxide Level 23, Anion Gap 12, Blood Urea Nitrogen 11, Creatinine 0.8, Estimat Glomerular Filtration Rate , Glucose Level 110H, Hemoglobin A1c 5.9 , Calcium Level 8.3L, Phosphorus Level 2.8, Magnesium Level 2.1 01/31/17 19:35: Vancomycin Level Trough 5.3 Height (Feet): 5 Height (Inches): 5.00 Weight (Pounds): 155 Objective General: alert, cooperative, no distress, appears stated age Head: normocephalic, without obvious abnormality, atraumatic Eyes: conjunctivae/corneas clear. PERRL, EOM's intact Throat: lips, mucosa, and tongue normal. MMM Neck: supple, symmetrical, trachea midline, and no JVD Lungs: clear to auscultation bilaterally Heart: regular rate and rhythm, S1, S2 normal, no murmur, click, rub or gallop Abdomen: soft, non-tender, non-distended, bowel sounds normal; no masses or organomegaly Extremities: extremities normal, atraumatic, no cyanosis, +RLE pitting edema from ankle to knee, TTP anterior tib/fib, no calf tenderness, blanching erythematous rash, warm to touch, tender. no crepitus. ext is warm/well perfused , distal pulses intact, full ROM (improving edema/erythema/warmth) Pulses: 2+ and symmetric Skin: skin color, texture, turgor normal; no rashes or lesions Neurologic: grossly normal, no focal deficits Abdiel Self M.D. Jan 31, 2017 22:54
[2017-02-01] VITALS: BP 134/76
[2017-02-01 04:00] VITALS: BP 143/68
[2017-02-01 07:12] LABS: EOSINOPHILS % (AUTO) 5.6 % (0.0-3.0); LYMPHOCYTES % (AUTO) 20.1 % (20.0-45.0); MEAN CORPUSCULAR HEMOGLOBIN 30.9 PG (27.0-31.0); MEAN CORPUSCULAR HGB CONC 33.4 G/DL (32.0-36.0); MEAN CORPUSCULAR VOLUME 92 FL (80-99); MEAN PLATELET VOLUME 4.6 FL (6.5-10.1); MONOCYTES % (AUTO) 6.5 % (1.0-10.0); NEUTROPHILS % (AUTO) 66.8 % (45.0-75.0); PLATELET COUNT 405 K/UL (150-450); RED BLOOD COUNT 3.51 M/UL (4.70-6.10); RED CELL DISTRIBUTION WIDTH 12.1 % (11.6-14.8); WHITE BLOOD COUNT 8.5 K/UL (4.8-10.8)
[2017-02-01 07:27] LABS: ANION GAP 12 (5-15); CALCIUM 8.2 mg/dL (8.6-10.2); CARBON DIOXIDE 23 mEQ/L (20-30); CHLORIDE 101 mEQ/L (98-107); CREATININE 0.7 mg/dL (0.7-1.2); HEMOLYSIS 6; POTASSIUM 3.7 mEQ/L (3.4-4.9); SODIUM 136 mEQ/L (135-145)
[2017-02-01 07:46] VITALS: BP 152/72
[2017-02-01] MEDS: Vancomycin 1gm in D5W 275ml IVPB SCH ×2 (09:09→20:54)
[2017-02-01] MEDS: Heparin 5000 units/ml inj SUBQ SCH ×2 (09:11→21:16)
[2017-02-01] MEDS: Aspirin Baby 81mg ORAL SCH (09:11)
[2017-02-01 12:11] VITALS: BP 147/70
--- NOTE | 2017-02-01 12:45 | General Progress Note ---
Assessment/Plan Problem List: (1) Sepsis ICD Codes: A41.9 - Sepsis, unspecified organism SNOMED: 52019355 (2) Cellulitis of right lower extremity ICD Codes: L03.115 - Cellulitis of right lower limb SNOMED: 808292174 (3) HTN (hypertension) ICD Codes: I10 - Essential (primary) hypertension SNOMED: 39084963 (4) HLD (hyperlipidemia) ICD Codes: E78.5 - Hyperlipidemia, unspecified SNOMED: 46681246 (5) Hyponatremia ICD Codes: E87.1 - Hypo-osmolality and hyponatremia SNOMED: 75502746 (6) GABBI (acute kidney injury) ICD Codes: N17.9 - Acute kidney failure, unspecified SNOMED: 40218220 (7) Hypokalemia ICD Codes: E87.6 - Hypokalemia SNOMED: 54619888 (8) Hypophosphatemia ICD Codes: E83.39 - Other disorders of phosphorus metabolism SNOMED: 0059195 Status: stable Assessment/Plan ID consulted Empiric vanco (01/28-) and cefepime (01/30-) per ID F/u blood cultures--ngtd X-ray tib/fib neg RLE U/S duplex neg for DVT Trend CBC, BMP Cont home ASA, staitn Hold home losartan, HCTZ given GABBI, hyponatremia Restart amlodpine 5mg daily Pain control, supportive care, bowel regimen PT eval DC planning pending ID DVT Prophylaxis: SCD, HSQ Code Status: Full Hospital Classification Declaration: Based on this initial evaluation, and depending on the patient's clinical course, I anticipate that this patient will require hospitalization for 1-2 days for sepsis 2/2 RLE cellulitis and close respiratory/hemodynamic monitoring. Disposition: Once the patient is stable to leave the hospital, I anticipate the patient will likely be discharged to the following environment: home with HH vs SNF Discussed with patient/family, nursing staff, SW/CM, ID regarding clinical status, treatment course, and disposition planning. Time of note may not reflect time of encounter. Subjective Date patient seen: Feb 01, 2017 Time patient seen: 12:45 ROS Limited/Unobtainable: No Allergies: Coded Allergies: No Known Allergies (Unverified , 01/28/17) Subjective Afebrile o/n WBC normalized Pt doing well but RLE swelling/redness/pain/warmth is slowly improving. Able to ambulate a few steps but does have pain. Able to move leg more than yesterday Denies f/c, chest pain, SOB, n/v, d/c, abd pain Objective Last 24 Hour Vital Signs Date Time Temp Pulse Resp B/P Pulse Ox O2 Delivery O2 Flow Rate FiO2 02/01/17 12:11 97.9 87 18 147/70 97 Room Air 02/01/17 09:09 81 152/72 02/01/17 07:46 97.9 81 18 152/72 97 Room Air 02/01/17 04:00 97.9 73 18 143/68 98 Room Air 02/01/17 00:00 98.9 87 18 134/76 96 01/31/17 20:00 99.7 83 18 137/70 97 Room Air 01/31/17 16:00 98.2 100 20 153/64 95 Room Air 01/31/17 15:02 96 155/77 Intake and Output 01/31/17 02/01/17 19:00 07:00 Intake Total 240 ml 745.000 ml Balance 240 ml 745.000 ml Intake Oral 240 ml 360 ml IV Total 385.000 ml # Voids 1 2 # Bowel Movements 1 Laboratory Tests 01/31/17 19:35: Vancomycin Level Trough 5.3 02/01/17 04:45: White Blood Count 8.5, Red Blood Count 3.51L, Hemoglobin 10.8L, Hematocrit 32.4L , Mean Corpuscular Volume 92, Mean Corpuscular Hemoglobin 30.9, Mean Corpuscular Hemoglobin Concent 33.4, Red Cell Distribution Width 12.1, Platelet Count 405, Mean Platelet Volume 4.6L, Neutrophils (%) (Auto) 66.8, Lymphocytes ( %) (Auto) 20.1, Monocytes (%) (Auto) 6.5, Eosinophils (%) (Auto) 5.6H, Basophils (%) (Auto) 1.0, Sodium Level 136, Potassium Level 3.7, Chloride Level 101, Carbon Dioxide Level 23, Anion Gap 12, Blood Urea Nitrogen 11, Creatinine 0.7, Estimat Glomerular Filtration Rate , Glucose Level 104, Calcium Level 8.2L Height (Feet): 5 Height (Inches): 5.00 Weight (Pounds): 155 Objective General: alert, cooperative, no distress, appears stated age Head: normocephalic, without obvious abnormality, atraumatic Eyes: conjunctivae/corneas clear. PERRL, EOM's intact Throat: lips, mucosa, and tongue normal. MMM Neck: supple, symmetrical, trachea midline, and no JVD Lungs: clear to auscultation bilaterally Heart: regular rate and rhythm, S1, S2 normal, no murmur, click, rub or gallop Abdomen: soft, non-tender, non-distended, bowel sounds normal; no masses or organomegaly Extremities: extremities normal, atraumatic, no cyanosis, +RLE pitting edema from ankle to knee, TTP anterior tib/fib, no calf tenderness, blanching erythematous rash, warm to touch, tender. no crepitus. ext is warm/well perfused , distal pulses intact, full ROM (improving edema/erythema/warmth) Pulses: 2+ and symmetric Skin: skin color, texture, turgor normal; no rashes or lesions Neurologic: grossly normal, no focal deficits Abdiel Self M.D. Feb 01, 2017 12:45
--- NOTE | 2017-02-01 15:42 | Infectious Diseases Prog Note ---
Assessment/Plan Assessment/Plan ASSESSMENT AND PLAN: 1. The patient has severe right leg cellulitis with redness and swelling of right leg, possible sepsis with leukocytosis and fevers and sirs criteria. - cellulitis improving slowly - continue vancomycin and cefepime for now - leg elevation - check labs - leukocytosis resolved 2. Hypertension. 3. Hyperlipidemia. 4. No history of diabetes. 5. No known allergies. 6. Social history is negative. 7. MAR was noted. 8. Case was discussed with RN. 9. Notes and records reviewed. 10. Continue treatment per Dr. Meadows Subjective Constitutional: Denies: fatigue, fever HEENT: Denies: congestion Respiratory: Denies: shortness of breath Cardiovascular: Denies: chest pain Gastrointestinal/Abdominal: Denies: diarrhea, nausea, vomiting Genitourinary: Reports: other - no romano, Denies: dysuria Neurologic: Denies: headache Psychiatric: Denies: depression Skin: Denies: rash Hematologic: Denies: bleeding Musculoskeletal: Denies: pain Allergies: Coded Allergies: No Known Allergies (Unverified , 01/28/17) Objective Vital Signs Last 24 Hour Vital Signs Date Time Temp Pulse Resp B/P Pulse Ox O2 Delivery O2 Flow Rate FiO2 02/01/17 13:21 87 147/70 02/01/17 12:11 97.9 87 18 147/70 97 Room Air 02/01/17 09:09 81 152/72 02/01/17 07:46 97.9 81 18 152/72 97 Room Air 02/01/17 04:00 97.9 73 18 143/68 98 Room Air 02/01/17 00:00 98.9 87 18 134/76 96 01/31/17 20:00 99.7 83 18 137/70 97 Room Air 01/31/17 16:00 98.2 100 20 153/64 95 Room Air Height (Feet): 5 Height (Inches): 5.00 Weight (Pounds): 155 General Appearance: no acute distress HEENT: normocephalic, atraumatic, anicteric, mucous membranes moist, PERRL, EOMI, pharynx normal, supple Respiratory/Chest: lungs clear, normal breath sounds, no respiratory distress, no accessory muscle use Cardiovascular: normal peripheral pulses, normal rate, regular rhythm, no gallop/murmur, no JVD Abdomen: normal bowel sounds, soft, non tender, no organomegaly, non distended Genitourinary: other - + romano Extremities: no cyanosis Skin: no rash Neurologic/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 grossly normal, alert, oriented x 3, responsive Lymphatic: no neck adenopathy Musculoskeletal: no effusion Objective x-ray right leg - negative Microbiology Date/Time Source Procedure Growth Status 01/28/17 17:29 Blood Blood Culture - Preliminary NO GROWTH AFTER 72 HOURS Resulted Laboratory Tests Test 01/31/17 19:35 02/01/17 04:45 Vancomycin Level Trough 5.3 ug/mL (5.0-12.0) White Blood Count 8.5 K/UL (4.8-10.8) Red Blood Count 3.51 M/UL (4.70-6.10) L Hemoglobin 10.8 G/DL (14.2-18.0) L Hematocrit 32.4 % (42.0-52.0) L Mean Corpuscular Volume 92 FL (80-99) Mean Corpuscular Hemoglobin 30.9 PG (27.0-31.0) Mean Corpuscular Hemoglobin Concent 33.4 G/DL (32.0-36.0) Red Cell Distribution Width 12.1 % (11.6-14.8) Platelet Count 405 K/UL (150-450) Mean Platelet Volume 4.6 FL (6.5-10.1) L Neutrophils (%) (Auto) 66.8 % (45.0-75.0) Lymphocytes (%) (Auto) 20.1 % (20.0-45.0) Monocytes (%) (Auto) 6.5 % (1.0-10.0) Eosinophils (%) (Auto) 5.6 % (0.0-3.0) H Basophils (%) (Auto) 1.0 % (0.0-2.0) Sodium Level 136 mEQ/L (135-145) Potassium Level 3.7 mEQ/L (3.4-4.9) Chloride Level 101 mEQ/L (98-107) Carbon Dioxide Level 23 mEQ/L (20-30) Anion Gap 12 (5-15) Blood Urea Nitrogen 11 mg/dL (7-23) Creatinine 0.7 mg/dL (0.7-1.2) Estimat Glomerular Filtration Rate mL/min (>60) Glucose Level 104 mg/dL (74-106) Calcium Level 8.2 mg/dL (8.6-10.2) L Current Medications Medications (Trade) Dose Ordered Sig/Kashif Route PRN Reason Start Time Stop Time Status Last Admin Dose Admin Acetaminophen (Tylenol) 650 mg Q6H PRN ORAL Mild Pain/Temp > 100.5 01/29/17 15:15 02/28/17 15:14 01/30/17 17:04 Amlodipine Besylate 5 mg 5 mg DAILY ORAL 01/31/17 15:00 03/02/17 14:59 02/01/17 09:09 Aspirin (ASA) 81 mg DAILY ORAL 01/29/17 16:30 02/28/17 16:29 02/01/17 09:11 Atenolol (Tenormin) 50 mg DAILY ORAL 02/01/17 13:00 03/03/17 12:59 02/01/17 13:21 Atorvastatin Calcium (Lipitor) 20 mg BEDTIME ORAL 01/29/17 21:00 02/28/17 20:59 01/31/17 21:13 Cefepime HCl/ Dextrose (Maxipime/D5W) 110 ml @ 220 mls/hr Q24H IV 01/30/17 20:00 02/06/17 19:59 01/31/17 20:46 Heparin Sodium (Porcine) (Heparin 5000 units/ml) 5,000 units Q12HR SUBQ 01/28/17 22:00 02/27/17 21:59 02/01/17 09:11 Polyethylene Glycol 17 gm 17 gm DAILY PRN ORAL Constipation 01/29/17 16:00 02/28/17 15:59 Vancomycin HCl (Vanco rx to dose) 1 ea DAILY PRN MISC Per rx protocol 01/28/17 20:30 02/27/17 20:29 Vancomycin HCl/ Dextrose (Vancomycin/D5W) 275 ml @ 183.708 mls/hr Q12H IVPB 01/31/17 21:00 02/05/17 20:59 02/01/17 09:09 EVE MARTINEZ Feb 01, 2017 15:42
[2017-02-01 16:00] VITALS: BP 150/75
[2017-02-01] MEDS ORDERED: Tubing IV Secondary IV ONE (17:22)
[2017-02-01 19:53] VITALS: BP 139/61
[2017-02-01] MEDS: Cefepime 2gm/D5W 110ml IV SCH ×2 (20:05)
[2017-02-01] MEDS: Atorvastatin 20mg tab ORAL SCH (21:12)
[2017-02-02] VITALS: BP 133/66
[2017-02-02 04:00] VITALS: BP 134/64
[2017-02-02] MEDS ORDERED: Lidocaine 1% Plain 30 ml INJ ONE (06:00)
[2017-02-02] MEDS ORDERED: Heparin 2000 units/Ns 1000ml INJ ONE (06:00)
[2017-02-02 08:11] VITALS: BP 134/67
[2017-02-02] MEDS: Aspirin Baby 81mg ORAL SCH (08:22)
[2017-02-02] MEDS: Heparin 5000 units/ml inj SUBQ SCH ×2 (08:25→20:04)
[2017-02-02] MEDS: Dyna-Hex 2% Top Sol 8oz TOPIC SCH (09:00)
[2017-02-02 12:00] VITALS: BP 135/67
--- NOTE | 2017-02-02 12:24 | Diagnostic Imaging Report ---
APPROVED REPORT CPT Code: 39692 Present Symptoms Lower Extremity Pain: Right Lower Extremity Edema: Right Comments: Swelling from right knee to foot, rubor. R/O DVT. RIGHT LOWER EXTREMITY VENOUS DUPLEX RIGHT LEG: Venous imaging reveals a patent deep venous system. There is no evidence of thrombus within the femoral, popliteal or tibial segments. The greater saphenous vein is also within normal limits. Doppler indicates normal spontaneous flow within these segments. Incidental findings: Enlarged lymph nodes in the inguinal and proximal superficial femoral vein area measuring (3.2 cm x 2.3 cm x 1.2 cm and 3.9 cm x 3.5 cm x 1.3 cm, respectively).
--- NOTE | 2017-02-02 12:34 | Wound Care Consultation ---
Wound Assessment Wound Assessment : Wound Number: #1 Wound Present on Admission: Yes New Wound: No Status Change of Wound: No Wound Location Body Site Modif: right, lower Wound Location Body Site: leg Wound Type: other - cellulitis Tissue Surrounding Wound: Intact Wound General Appearance: Reddened, Open to air, Clean/Dry Wound Comment #1 right lower leg cellulitis, skin remains intact. per patient has improved, swelling has reduced. Recommendation. - follow MD orders. - Assess skin for any changes of condition and notify MD. - turn and reposition. -optimize nutrition. -keep clean and dry. MARCELL NUNEZ Feb 02, 2017 12:34
[2017-02-02] MEDS: Vancomycin 1gm in D5W 275ml IVPB SCH ×2 (12:56→22:30)
[2017-02-02 15:54] VITALS: BP 121/61
[2017-02-02 19:48] VITALS: BP 123/62
[2017-02-02] MEDS: Cefepime 2gm/D5W 110ml IV SCH ×2 (20:02)
[2017-02-02] MEDS: Atorvastatin 20mg tab ORAL SCH (20:02)
--- NOTE | 2017-02-02 20:51 | General Progress Note ---
Assessment/Plan Problem List: (1) Sepsis ICD Codes: A41.9 - Sepsis, unspecified organism SNOMED: 74520158 (2) Cellulitis of right lower extremity ICD Codes: L03.115 - Cellulitis of right lower limb SNOMED: 052963829 (3) HTN (hypertension) ICD Codes: I10 - Essential (primary) hypertension SNOMED: 24763467 (4) HLD (hyperlipidemia) ICD Codes: E78.5 - Hyperlipidemia, unspecified SNOMED: 70817950 (5) Hyponatremia ICD Codes: E87.1 - Hypo-osmolality and hyponatremia SNOMED: 43171383 (6) GABBI (acute kidney injury) ICD Codes: N17.9 - Acute kidney failure, unspecified SNOMED: 17987762 (7) Hypokalemia ICD Codes: E87.6 - Hypokalemia SNOMED: 48555594 (8) Hypophosphatemia ICD Codes: E83.39 - Other disorders of phosphorus metabolism SNOMED: 0802048 Status: stable Assessment/Plan ID consulted Empiric vanco (01/28-) and cefepime (01/30-) per ID D/w ID who recommends home IV abx for 1 week via PICC F/u blood cultures--ngtd X-ray tib/fib neg RLE U/S duplex neg for DVT Trend CBC, BMP Cont home ASA, staitn Hold home losartan, HCTZ given GABBI, hyponatremia Restart amlodpine 5mg daily Pain control, supportive care, bowel regimen PT eval PICC ordered Home health for IV abx ordered DVT Prophylaxis: SCD, HSQ Code Status: Full Hospital Classification Declaration: Based on this initial evaluation, and depending on the patient's clinical course, I anticipate that this patient will require hospitalization for 1-2 days for sepsis 2/2 RLE cellulitis and close respiratory/hemodynamic monitoring. Disposition: Once the patient is stable to leave the hospital, I anticipate the patient will likely be discharged to the following environment: home with HH vs SNF Discussed with patient/family, nursing staff, SW/CM, ID regarding clinical status, treatment course, and disposition planning. Time of note may not reflect time of encounter. Subjective Date patient seen: Feb 02, 2017 Time patient seen: 12:40 ROS Limited/Unobtainable: No Constitutional: Reports: no symptoms HEENT: Reports: no symptoms Cardiovascular: Reports: no symptoms Respiratory: Reports: no symptoms Gastrointestinal/Abdominal: Reports: no symptoms Genitourinary: Reports: no symptoms Neurologic/Psychiatric: Reports: no symptoms Endocrine: Reports: no symptoms Hematologic/Lymphatic: Reports: no symptoms Allergies: Coded Allergies: No Known Allergies (Unverified , 01/28/17) Subjective Afebrile o/n WBC normalized Pt doing well but RLE swelling/redness/pain/warmth is slowly improving. Able to ambulate a few steps but does have pain. Able to move leg more than yesterday Denies f/c, chest pain, SOB, n/v, d/c, abd pain Awaiting PICC placement Objective Last 24 Hour Vital Signs Date Time Temp Pulse Resp B/P Pulse Ox O2 Delivery O2 Flow Rate FiO2 02/02/17 19:48 98.1 70 18 123/62 98 Room Air 02/02/17 15:54 97.7 69 18 121/61 98 Room Air 02/02/17 12:00 97.8 70 18 135/67 98 Room Air 02/02/17 08:24 78 134/67 02/02/17 08:23 78 134/67 02/02/17 08:11 98.1 78 20 134/67 97 Room Air 02/02/17 04:00 97.7 71 18 134/64 98 Room Air 02/02/17 00:00 98.0 71 18 133/66 97 Room Air Intake and Output 02/01/17 02/02/17 19:00 07:00 Intake Total 1115.000 ml 37891.708 ml Balance 1115.000 ml 65894.708 ml Intake Oral 840 ml 480 ml IV Total 275.000 ml 14518.708 ml # Voids 4 3 # Bowel Movements 1 2 Laboratory Tests 02/02/17 07:45: Vancomycin Level Trough 14.4H Height (Feet): 5 Height (Inches): 5.00 Weight (Pounds): 155 Objective General: alert, cooperative, no distress, appears stated age Head: normocephalic, without obvious abnormality, atraumatic Eyes: conjunctivae/corneas clear. PERRL, EOM's intact Throat: lips, mucosa, and tongue normal. MMM Neck: supple, symmetrical, trachea midline, and no JVD Lungs: clear to auscultation bilaterally Heart: regular rate and rhythm, S1, S2 normal, no murmur, click, rub or gallop Abdomen: soft, non-tender, non-distended, bowel sounds normal; no masses or organomegaly Extremities: extremities normal, atraumatic, no cyanosis, +RLE pitting edema from ankle to knee, TTP anterior tib/fib, no calf tenderness, blanching erythematous rash, warm to touch, tender. no crepitus. ext is warm/well perfused , distal pulses intact, full ROM (improving edema/erythema/warmth) Pulses: 2+ and symmetric Skin: skin color, texture, turgor normal; no rashes or lesions Neurologic: grossly normal, no focal deficits Abdiel Self M.D. Feb 02, 2017 20:51
--- NOTE | 2017-02-02 21:36 | Infectious Diseases Prog Note ---
Assessment/Plan Assessment/Plan ASSESSMENT AND PLAN: 1. The patient has severe right leg cellulitis with redness and swelling of right leg, possible sepsis with leukocytosis and fevers and sirs criteria. - cellulitis improving slowly but still significant - continue vancomycin and cefepime for now - vancomycin trough therapeutic, increase cefepime dose - leg elevation - check labs - leukocytosis resolved - d/w pharmacy about abx dosing 2. Hypertension. 3. Hyperlipidemia. 4. No history of diabetes. 5. No known allergies. 6. Social history is negative. 7. MAR was noted. 8. Case was discussed with RN. 9. Notes and records reviewed. 10. Continue treatment per Dr. Meadows Subjective Constitutional: Denies: fever HEENT: Denies: congestion Respiratory: Denies: shortness of breath Cardiovascular: Denies: chest pain Gastrointestinal/Abdominal: Denies: diarrhea, nausea, vomiting Genitourinary: Denies: dysuria Neurologic: Denies: headache Psychiatric: Denies: depression Skin: Denies: rash Musculoskeletal: Reports: pain - less pain in right leg Allergies: Coded Allergies: No Known Allergies (Unverified , 01/28/17) Objective Vital Signs Last 24 Hour Vital Signs Date Time Temp Pulse Resp B/P Pulse Ox O2 Delivery O2 Flow Rate FiO2 02/02/17 19:48 98.1 70 18 123/62 98 Room Air 02/02/17 15:54 97.7 69 18 121/61 98 Room Air 02/02/17 12:00 97.8 70 18 135/67 98 Room Air 02/02/17 08:24 78 134/67 02/02/17 08:23 78 134/67 02/02/17 08:11 98.1 78 20 134/67 97 Room Air 02/02/17 04:00 97.7 71 18 134/64 98 Room Air 02/02/17 00:00 98.0 71 18 133/66 97 Room Air Height (Feet): 5 Height (Inches): 5.00 Weight (Pounds): 155 General Appearance: no acute distress HEENT: normocephalic, atraumatic, anicteric, mucous membranes moist, PERRL, EOMI, pharynx normal, supple, no JVD Respiratory/Chest: lungs clear, normal breath sounds, no respiratory distress, no accessory muscle use Cardiovascular: normal rate, regular rhythm, no gallop/murmur, no JVD Abdomen: normal bowel sounds, soft, non tender, no organomegaly, non distended Genitourinary: other - no romano Extremities: no cyanosis, other - right leg still with redess and swelling Skin: no rash 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, alert, oriented x 3, responsive Lymphatic: no neck adenopathy Musculoskeletal: no effusion Objective x-ray right leg - negative Microbiology Date/Time Source Procedure Growth Status 01/28/17 17:29 Blood Blood Culture - Preliminary NO GROWTH AFTER 4 DAYS Resulted Labs Test 01/31/17 05:00 01/31/17 19:35 02/01/17 04:45 02/02/17 07:45 White Blood Count 11.3 K/UL (4.8-10.8) 8.5 K/UL (4.8-10.8) Red Blood Count 3.63 M/UL (4.70-6.10) 3.51 M/UL (4.70-6.10) Hemoglobin 11.4 G/DL (14.2-18.0) 10.8 G/DL (14.2-18.0) Hematocrit 33.5 % (42.0-52.0) 32.4 % (42.0-52.0) Mean Corpuscular Volume 92 FL (80-99) 92 FL (80-99) Mean Corpuscular Hemoglobin 31.4 PG (27.0-31.0) 30.9 PG (27.0-31.0) Mean Corpuscular Hemoglobin Concent 34.0 G/DL (32.0-36.0) 33.4 G/DL (32.0-36.0) Red Cell Distribution Width 11.9 % (11.6-14.8) 12.1 % (11.6-14.8) Platelet Count 362 K/UL (150-450) 405 K/UL (150-450) Mean Platelet Volume 5.2 FL (6.5-10.1) 4.6 FL (6.5-10.1) Neutrophils (%) (Auto) 78.4 % (45.0-75.0) 66.8 % (45.0-75.0) Lymphocytes (%) (Auto) 12.5 % (20.0-45.0) 20.1 % (20.0-45.0) Monocytes (%) (Auto) 5.6 % (1.0-10.0) 6.5 % (1.0-10.0) Eosinophils (%) (Auto) 2.4 % (0.0-3.0) 5.6 % (0.0-3.0) Basophils (%) (Auto) 1.0 % (0.0-2.0) 1.0 % (0.0-2.0) Sodium Level 135 mEQ/L (135-145) 136 mEQ/L (135-145) Potassium Level 3.6 mEQ/L (3.4-4.9) 3.7 mEQ/L (3.4-4.9) Chloride Level 100 mEQ/L (98-107) 101 mEQ/L (98-107) Carbon Dioxide Level 23 mEQ/L (20-30) 23 mEQ/L (20-30) Anion Gap 12 (5-15) 12 (5-15) Blood Urea Nitrogen 11 mg/dL (7-23) 11 mg/dL (7-23) Creatinine 0.8 mg/dL (0.7-1.2) 0.7 mg/dL (0.7-1.2) Estimat Glomerular Filtration Rate mL/min (>60) mL/min (>60) Glucose Level 110 mg/dL (74-106) 104 mg/dL (74-106) Hemoglobin A1c 5.9 % (< 6.0) Calcium Level 8.3 mg/dL (8.6-10.2) 8.2 mg/dL (8.6-10.2) Phosphorus Level 2.8 mg/dL (2.5-4.8) Magnesium Level 2.1 mg/dL (1.7-2.5) Vancomycin Level Trough 5.3 ug/mL (5.0-12.0) 14.4 ug/mL (5.0-12.0) Laboratory Tests Test 02/02/17 07:45 Vancomycin Level Trough 14.4 ug/mL (5.0-12.0) H Current Medications Medications (Trade) Dose Ordered Sig/Kashif Route PRN Reason Start Time Stop Time Status Last Admin Dose Admin Acetaminophen (Tylenol) 650 mg Q6H PRN ORAL Mild Pain/Temp > 100.5 01/29/17 15:15 02/28/17 15:14 01/30/17 17:04 Amlodipine Besylate 5 mg 5 mg DAILY ORAL 01/31/17 15:00 03/02/17 14:59 02/02/17 08:23 Aspirin (ASA) 81 mg DAILY ORAL 01/29/17 16:30 02/28/17 16:29 02/02/17 08:22 Atenolol (Tenormin) 50 mg DAILY ORAL 02/01/17 13:00 03/03/17 12:59 02/02/17 08:24 Atorvastatin Calcium (Lipitor) 20 mg BEDTIME ORAL 01/29/17 21:00 02/28/17 20:59 02/02/17 20:02 Cefepime HCl/ Dextrose (Maxipime/D5W) 110 ml @ 220 mls/hr Q24H IV 01/30/17 20:00 02/06/17 19:59 02/02/17 20:02 Chlorhexidine Gluconate (Alice-Hex 2%) 1 applic DAILY TOPIC 02/02/17 09:00 03/04/17 08:59 Heparin Sodium (Porcine) (Heparin 5000 units/ml) 5,000 units Q12HR SUBQ 01/28/17 22:00 02/27/17 21:59 02/02/17 20:04 Polyethylene Glycol 17 gm 17 gm DAILY PRN ORAL Constipation 01/29/17 16:00 02/28/17 15:59 Vancomycin HCl (Vanco rx to dose) 1 ea DAILY PRN MISC Per rx protocol 01/28/17 20:30 02/27/17 20:29 Vancomycin HCl/ Dextrose (Vancomycin/D5W) 275 ml @ 183.708 mls/hr Q12H IVPB 01/31/17 21:00 02/05/17 20:59 02/02/17 12:56 EVE MARTINEZ Feb 02, 2017 21:36
[2017-02-03] VITALS: BP 127/60
[2017-02-03 03:45] VITALS: BP 129/64
[2017-02-03 06:38] LABS: BASOPHILS % (AUTO) 1.2 % (0.0-2.0); EOSINOPHILS % (AUTO) 5.1 % (0.0-3.0); LYMPHOCYTES % (AUTO) 19.8 % (20.0-45.0); MEAN CORPUSCULAR HEMOGLOBIN 32.3 PG (27.0-31.0); MEAN CORPUSCULAR HGB CONC 34.6 G/DL (32.0-36.0); MEAN CORPUSCULAR VOLUME 94 FL (80-99); MEAN PLATELET VOLUME 4.4 FL (6.5-10.1); MONOCYTES % (AUTO) 5.7 % (1.0-10.0); NEUTROPHILS % (AUTO) 68.3 % (45.0-75.0); PLATELET COUNT 567 K/UL (150-450); RED CELL DISTRIBUTION WIDTH 12.2 % (11.6-14.8); WHITE BLOOD COUNT 10.2 K/UL (4.8-10.8)
[2017-02-03 06:52] LABS: ANION GAP 10 (5-15); CALCIUM 9.1 mg/dL (8.6-10.2); CARBON DIOXIDE 26 mEQ/L (20-30); CHLORIDE 100 mEQ/L (98-107); CREATININE 0.8 mg/dL (0.7-1.2); HEMOLYSIS 0; POTASSIUM 4.8 mEQ/L (3.4-4.9); SODIUM 136 mEQ/L (135-145)
[2017-02-03 08:00] VITALS: BP 142/65
[2017-02-03] MEDS ORDERED: Cefepime 2gm/D5W 110ml IV SCH ×2 (08:00)
[2017-02-03] MEDS: Aspirin Baby 81mg ORAL SCH (08:34)
[2017-02-03] MEDS: Heparin 5000 units/ml inj SUBQ SCH (08:36)
[2017-02-03] MEDS: Vancomycin 1gm in D5W 275ml IVPB SCH (10:30)
[2017-02-03] MEDS: Dyna-Hex 2% Top Sol 8oz TOPIC SCH (10:50)
[2017-02-03 12:00] VITALS: BP 130/67
--- NOTE | 2017-02-03 12:03 | Diagnostic Imaging Report ---
Indications: Needs long-term IV access Technique: Ultrasound confirms patent compressible left basilic vein. Total sterile technique, including sterile probe cover and sterile gel, hat, mask,, sterile gown, large sterile drape, and preparation with 2% chlorhexidine utilized. Local anesthesia with 1% lidocaine. Under real-time ultrasound guidance, puncture distal vein using 21-gauge needle, documented and archived, passage 0.018 guidewire under direct fluoroscopy, which was used to determine appropriate catheter length, exchange for 5 Malian peel-away sheath. 5 Malian Bard dual-lumen power PICC cut to 42 cm. It was inserted through the peel-away sheath. Peel-away sheath and guidewire removed. Catheter fixed to the skin. Both catheter ports aspirated and flushed. Patient tolerated procedure well, without immediate complication. Digital radiograph documents satisfactory catheter tip position, at the cavoatrial junction. Total fluoroscopy time 0.3 minutes. Total dose area product 5 dGycm2 Impression: Successful placement of left arm PICC under sonographic and fluoroscopic guidance, as described above.
--- NOTE | 2017-02-03 14:41 | Infectious Diseases Prog Note ---
Assessment/Plan Assessment/Plan ASSESSMENT AND PLAN: 1. The patient has severe right leg cellulitis with redness and swelling of right leg, possible sepsis with leukocytosis and fevers and sirs criteria. - cellulitis improving slowly but still significant - continue vancomycin and cefepime for now - vancomycin trough therapeutic, increase cefepime dose - leg elevation - check labs - leukocytosis resolved, fevers resolved - consider right leg imaging - us vs ct - r/o abscess - d/w radiology - will d/w Dr. Meadows 2. Hypertension. 3. Hyperlipidemia. 4. No history of diabetes. 5. No known allergies. 6. Social history is negative. 7. MAR was noted. 8. Case was discussed with RN. 9. Notes and records reviewed. 10. Continue treatment per Dr. Meadows Subjective Constitutional: Denies: fever HEENT: Denies: congestion Respiratory: Denies: shortness of breath Cardiovascular: Denies: chest pain Gastrointestinal/Abdominal: Denies: diarrhea, nausea, vomiting Genitourinary: Denies: dysuria Neurologic: Denies: headache Psychiatric: Denies: depression Skin: Denies: rash Hematologic: Denies: bleeding Musculoskeletal: Denies: pain Allergies: Coded Allergies: No Known Allergies (Unverified , 01/28/17) Objective Vital Signs Last 24 Hour Vital Signs Date Time Temp Pulse Resp B/P Pulse Ox O2 Delivery O2 Flow Rate FiO2 02/03/17 12:00 97.3 65 18 130/67 97 Room Air 02/03/17 08:34 72 141/65 02/03/17 08:34 72 141/65 02/03/17 08:00 98.1 72 18 142/65 99 Room Air 02/03/17 03:45 96.8 65 19 129/64 96 Room Air 02/03/17 00:00 97.9 65 18 127/60 98 Room Air 02/02/17 19:48 98.1 70 18 123/62 98 Room Air 02/02/17 15:54 97.7 69 18 121/61 98 Room Air Height (Feet): 5 Height (Inches): 5.00 Weight (Pounds): 155 General Appearance: no acute distress HEENT: normocephalic, atraumatic, anicteric, mucous membranes moist, PERRL, EOMI, pharynx normal, supple, no JVD Respiratory/Chest: lungs clear, normal breath sounds, no respiratory distress, no accessory muscle use Cardiovascular: normal rate, regular rhythm, no gallop/murmur, no JVD Abdomen: normal bowel sounds, soft, non tender, no organomegaly, non distended Genitourinary: other - no romano Extremities: no cyanosis, other - rightl leg with overall less swellng but still significant pain and redness Skin: no rash 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, alert, oriented x 3, responsive Lymphatic: no neck adenopathy Musculoskeletal: no effusion Objective x-ray right leg - negative Microbiology Date/Time Source Procedure Growth Status 01/28/17 17:29 Blood Blood Culture - Final NO GROWTH AFTER 5 DAYS Complete Laboratory Tests Test 02/03/17 05:30 White Blood Count 10.2 K/UL (4.8-10.8) Red Blood Count 3.70 M/UL (4.70-6.10) L Hemoglobin 12.0 G/DL (14.2-18.0) L Hematocrit 34.6 % (42.0-52.0) L Mean Corpuscular Volume 94 FL (80-99) Mean Corpuscular Hemoglobin 32.3 PG (27.0-31.0) H Mean Corpuscular Hemoglobin Concent 34.6 G/DL (32.0-36.0) Red Cell Distribution Width 12.2 % (11.6-14.8) Platelet Count 567 K/UL (150-450) H Mean Platelet Volume 4.4 FL (6.5-10.1) L Neutrophils (%) (Auto) 68.3 % (45.0-75.0) Lymphocytes (%) (Auto) 19.8 % (20.0-45.0) L Monocytes (%) (Auto) 5.7 % (1.0-10.0) Eosinophils (%) (Auto) 5.1 % (0.0-3.0) H Basophils (%) (Auto) 1.2 % (0.0-2.0) Sodium Level 136 mEQ/L (135-145) Potassium Level 4.8 mEQ/L (3.4-4.9) Chloride Level 100 mEQ/L (98-107) Carbon Dioxide Level 26 mEQ/L (20-30) Anion Gap 10 (5-15) Blood Urea Nitrogen 12 mg/dL (7-23) Creatinine 0.8 mg/dL (0.7-1.2) Estimat Glomerular Filtration Rate mL/min (>60) Glucose Level 104 mg/dL (74-106) Calcium Level 9.1 mg/dL (8.6-10.2) Current Medications Medications (Trade) Dose Ordered Sig/Kashif Route PRN Reason Start Time Stop Time Status Last Admin Dose Admin Acetaminophen (Tylenol) 650 mg Q6H PRN ORAL Mild Pain/Temp > 100.5 01/29/17 15:15 02/28/17 15:14 01/30/17 17:04 Amlodipine Besylate 5 mg 5 mg DAILY ORAL 01/31/17 15:00 03/02/17 14:59 02/03/17 08:34 Aspirin (ASA) 81 mg DAILY ORAL 01/29/17 16:30 02/28/17 16:29 02/03/17 08:34 Atenolol (Tenormin) 50 mg DAILY ORAL 02/01/17 13:00 03/03/17 12:59 02/03/17 08:34 Atorvastatin Calcium (Lipitor) 20 mg BEDTIME ORAL 01/29/17 21:00 02/28/17 20:59 02/02/17 20:02 Cefepime HCl/ Dextrose (Maxipime/D5W) 110 ml @ 220 mls/hr Q12HR@0800,2000 IV 02/03/17 08:00 02/10/17 07:59 02/03/17 08:15 Chlorhexidine Gluconate 1 applic 1 applic DAILY TOPIC 02/02/17 09:00 03/04/17 08:59 02/03/17 10:50 Heparin Sodium (Porcine) (Heparin 5000 units/ml) 5,000 units Q12HR SUBQ 01/28/17 22:00 02/27/17 21:59 02/03/17 08:36 Polyethylene Glycol (Miralax) 17 gm DAILY PRN ORAL Constipation 01/29/17 16:00 02/28/17 15:59 Vancomycin HCl (Vanco rx to dose) 1 ea DAILY PRN MISC Per rx protocol 01/28/17 20:30 02/27/17 20:29 Vancomycin HCl/ Dextrose (Vancomycin/D5W) 275 ml @ 183.708 mls/hr Q12H IVPB 01/31/17 21:00 02/05/17 20:59 02/03/17 10:30 EVE MARTINEZ Feb 03, 2017 14:41
[2017-02-03] MEDS ORDERED: CEFEPIME-D2 GM/50 ML IVPB (17:28)
[2017-02-03] MEDS ORDERED: VANCOMYCIN1 GM/2502 IVPB (17:29)
[2017-02-03 17:31] VITALS: BP 143/72
--- NOTE | 2017-02-03 23:51 | Discharge Summary ---
Discharge Summary Hospital Course Date of Admission Jan 28, 2017 at 19:10 Date of Discharge Feb 03, 2017 at 18:38 Admitting Diagnosis cellulitis HPI Jaylon Souza is a 76 year old male who was admitted on Jan 28, 2017 at 19:10 for Cellulitis Discharge Discharge Disposition Patient was discharged to SNF/Subacute Facility(03) Discharge Diagnoses: Abdiel Self M.D. Feb 03, 2017 23:51
--- NOTE | 2017-02-04 14:20 | Diagnostic Imaging Report ---
Indication: Right lower leg swelling and cellulitis Technique: Grayscale and duplex images of the right leg Comparison: None Findings: There is considerable edema of the subcutaneous fat. No focal fluid collections are demonstrated Impression: Edema of the subcutaneous fat of the right lower leg, nonspecific but likely in keeping with stated clinical history of cellulitis No focal fluid collections to suggest abscess demonstrated
== END 2017-02-03 18:38 | DRG 872 ==
LOC: EMR 17:45 → 4E 19:10 → EDBEDREQ 20:00 → 4W 01-31 16:47
PROC: 02HV33Z Insertion of Infusion Device into Superior Vena Cava, Percutaneous Approach (ICD-10-PCS; principal; 2017-02-03)
DX: A41.9 Sepsis, unspecified organism (principal); N17.9 Acute kidney failure, unspecified; E87.1 Hypo-osmolality and hyponatremia; E83.39 Other disorders of phosphorus metabolism; L03.115 Cellulitis of right lower limb; I10 Essential (primary) hypertension; E78.5 Hyperlipidemia, unspecified
CPT/HCPCS: 36415; 36569; 76882; 76937; 80048; 80053; 80202; 81003; 83036; 83605; 83735; 84100; 85025; 87040; 93970; J8499